=== PATIENT | female | born 1995 | race Caucasian/White ===

== ENCOUNTER → 2022-11-28 | Outpatient (CLI) | payer OTHER, SELFPAY ==
[2022-11-28 15:45] LABS: Absolute Lymphocyte Count 2.59 X10^3/uL (0.83-4.51); Absolute Neutrophil Count 4.3 X10^3/uL (2.0-7.7); Basophil# 0.05 X10^3/uL; Basophil% 0.6 % (0-1); Eosinophil# 0.19 X10^3/uL; Eosinophils% 2.4 % (0-5); Hematocrit 39.1 % (37-47); Lymphocyte # 2.59 X10^3/ul (0.83-4.51); Lymphocyte % 33.2 % (19-41); Mean Corp Hgb Conc 33.2 g/dL (32-36); Mean Corpuscular Hgb 29.1 pg (27.0-32.0); Mean Corpuscular Volume 87.5 fL (81-99); Mean Platelet Vol. 10.1 fl (6.2-12.0); Monocyte% 7.7 % (0-10); NRBC Flagged by Analyzer 0 % (0-5); Neutrophil # 4.34 X10^3/uL (2.7-7.7); Neutrophil % 55.8 % (47-70); Platelet Count 350 K/mm3 (150-450); RBC Distribution Width CV 13.1 % (11.6-14.6); RBC Distribution Width SD 41.8 fl (35.1-43.9); Red Blood Count 4.47 M/mm3 (4.2-5.4); White Blood Count 7.8 K/mm3 (4.4-11.0)
[2022-11-28 16:05] LABS: Ferritin 19 ng/mL (8-252); Free T3 2.6 pg/mL (2.18-3.98); T4 Free Direct 0.85 ng/dL (0.76-1.46); Thyroid Stim Hormone (TSH) 1.97 uIU/mL (0.358-3.74)
[2022-12-03 09:08] LABS: Anti-Thyroglobulin AB < 1.0 IU/mL (0.0-0.9); Thyroglobulin, Serum Qt. 11.2 ng/mL (1.5-38.5); Thyroid Peroxidase AB < 9 IU/mL (0-34); Thyroid Stim Immunoglob <0.10 IU/L (0.00-0.55)
== END | disposition home or self-care (01) ==
LOC: MFPLAB 14:03
PROVIDERS: PCP Family Medicine; Visit Provider Family Medicine
DX: L65.9 Nonscarring hair loss, unspecified (principal)
CPT/HCPCS: 82728; 84432; 84439; 84443; 84445; 84481; 85025; 86376; 86800

== ENCOUNTER → 2023-05-21 | Outpatient (CLI) | payer OTHER, SELFPAY ==
[2023-05-21 18:30] LABS: HIV - WCH Non-Reactive (Nonreactive); Hepatitis C Antibody Non-Reactive (Nonreactive); Syphilis Antibodies Non-reactive
[2023-05-23 06:10] LABS: HSV 2 IgG < 0.91 index (0.00-0.90)
[2023-05-23 22:06] LABS: Chlamydia By Nucleic Acid AMP Negative (Negative); Gonococcus By Nucleic Acid AMP Negative (Negative)
[2023-05-27 11:56] LABS: HPV Reflexed? NOT INDICATED
== END | disposition home or self-care (01) ==
PROVIDERS: PCP Family Medicine; Referring Provider Registered Nurse; Visit Provider Registered Nurse
DX: Z11.3 Encounter for screening for infections with a predominantly sexual mode of transmission (principal); Z12.4 Encounter for screening for malignant neoplasm of cervix; Z20.2 Contact with and (suspected) exposure to infections with a predominantly sexual mode of transmission
CPT/HCPCS: 36415; 86695; 86696; 86703; 86780; 86803; 87491; 87591; 88175; G0145

== ENCOUNTER → 2024-12-02 | Outpatient (CLI) | payer OTHER, SELFPAY ==
[2024-12-03 23:07] LABS: Chlamydia By Nucleic Acid AMP Negative (Negative); Gonococcus By Nucleic Acid AMP Negative (Negative)
== END | disposition home or self-care (01) ==
LOC: LABSPEC 11:31
PROVIDERS: Referring Provider Advanced Practice Midwife; Visit Provider Advanced Practice Midwife
DX: Z11.3 Encounter for screening for infections with a predominantly sexual mode of transmission (principal); Z20.2 Contact with and (suspected) exposure to infections with a predominantly sexual mode of transmission
CPT/HCPCS: 87070; 87205; 87491; 87591

== ENCOUNTER 2025-01-13 05:55 | Emergency (ER) | payer OTHER, SELFPAY ==
[2025-01-13 05:56] VITALS: BP 140/84; PULSE 79; RESP 18; TEMP 37.2; O2SAT 100; BMI 39.4
--- NOTE | 2025-01-13 06:11 | RAD_ITS ---
PROCEDURE: ANKLE MIN 3 VIEWS; FOOT MIN 3 VIEWS 01/13/2025 REASON FOR EXAM: PAIN TECHNIQUE: Three-view left ankle and three-view left foot series (combined dictation). COMPARISON: None. RAD/Foot min 3 Views IMPRESSION: A transverse FRACTURE at the proximal left 5th metatarsal bone is seen, minimal ly displaced. Probable comminuted portion extending to the 5th tarsal-metatarsal articulation, as well. On lateral imaging, normal contour of the Achilles tendon is seen mild inferior and posterior calcaneal spurring is noted. No ankle joint effusion is seen. The ankle mortise appears intact. No significant arthritic process is seen. No fracture or dislocation is evident. If clinical concern persists, short-term follow-up imaging may be obtained to r ule out a currently occult fracture. Reading Location: [id number]
--- NOTE | 2025-01-13 06:11 | RAD_ITS ---
PROCEDURE: ANKLE MIN 3 VIEWS; FOOT MIN 3 VIEWS 01/13/2025 REASON FOR EXAM: PAIN TECHNIQUE: Three-view left ankle and three-view left foot series (combined dictation). COMPARISON: None. RAD/Ankle min 3 Views IMPRESSION: A transverse FRACTURE at the proximal left 5th metatarsal bone is seen, minimal ly displaced. Probable comminuted portion extending to the 5th tarsal-metatarsal articulation, as well. On lateral imaging, normal contour of the Achilles tendon is seen mild inferior and posterior calcaneal spurring is noted. No ankle joint effusion is seen. The ankle mortise appears intact. No significant arthritic process is seen. No fracture or dislocation is evident. If clinical concern persists, short-term follow-up imaging may be obtained to r ule out a currently occult fracture. Reading Location: [id number]
--- OUTSIDE RECORDS SUMMARY | 2025-01-13 06:34 | XMS RPT_ITS | CCD ---
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 tenderness. Negative right straight leg raise test and negative left straight leg raise test. Right upper leg: Tenderness (Mild diffuse, no pain with activation of hamstrings) present. No swelling, edema or bony tenderness. Left upper leg: Tenderness (Mild diffuse, no pain with activation hamstrings) present. No swelling, edema or bony tenderness. Legs: Comments: Strength Testing Hip Flexors (T12-L3) normal strength bilateral, no weakness Quad (L2-L4) normal strength bilateral, no weakness Tibialis Anterior (L4) normal strength bilateral, no weakness Extensor Hallusis Longus (L5) normal strength bilateral, no weakness Peroneus Longus (S1) normal strength bilateral, no weakness Gastroc (S1) normal strength bilateral, no weakness Sensation Testing Lateral Thigh (L1-L2) intact to light touch bilateral, no paresthesia Medial Knee (L3) intact to light touch bilateral, no paresthesia Medial Calf, Medial Foot (L4) intact to light touch bilateral, no paresthesia Lateral Calf, 1st web space (L5) intact to light touch bilateral, no paresthesia Lateral Foot (S1) intact to light touch bilateral, no paresthesia Reflexes Patella (L4) 2+ equal bilaterally Achilles (S1) 2+ equal bilaterally External Notes No pertinent interval updates Labs No results found for: HGBA1C Lab Results Component Value Date CREATININE 0.82 11/08/2021 Imaging No imaging available for review EMG/NCT N/A Procedure No procedures completed today Assessment Diagnosis Plan 1. Hamstring strain, left, initial encounter 2. Hamstring strain, right, initial encounter Plan Continue normal workouts as tolerated. Add [place] curls to her hamstring workout program. Continue flexibility. Recheck if symptoms are not substantially relieved with this program. We can consider adding formal physical therapy. No follow-ups on file. Elio Castillo MD 07/10/2023 9:13 AM Please note that portions of this note may have been completed with voice recognition software. Efforts were made to edit the dictation but minor errors in announcer may have occurred. Normal [facility] Chlamydia trachomatis rRNA d etection by probe and target amplification methodOrdered By: Vicki Rebolledo on 05-21-2023 C. trachomatis rRNA ANNELIESE+probe Ql (Unsp spec) Negative Negative [facility] HIV 1 and HIV-2 antibody ass ay with HIV-1 p24 antigen detectionOrdered By: Vicki Rebolledo on 05-21-2023 HIV 1+2 Ab+HIV1 p24 Ag IA Ql Non-Reactive Nonreactive [facility] Laboratory - Microbiology an d Antimicrobial susceptibilityOrdered By: Vicki Rebolledo on 05-21-2023 N. gonorrhoeae DNA ANNELIESE+probe Ql (Unsp spec) Negative Negative [facility] Comment on above: Performed at: =[address] [id number] Director: Zhanna Gee MD, Phone: [phone] No Panel InformationOrdered By: Vicki Rebolledo on 05-21-2023 Hepatitis C Antibody Non-Reactive Nonreactive [facility] Comment on above: Non Reactive: < 0.8 Equivocal: >/= 0.8 to < 1.0 Reactive: >/= 1.0The CDC recommends that a reactive/equivocal HCV antibody result be followed up by the HCV Nucleic Acid Amplificationtest ([id number]) Herpes Simplex Virus I IgG Antibody 55.70 index 0.00-0.90 [facility] Comment on above: Negative <0.91 Equiv ocal 0.91 - 1.09 Positive >1.09 Note: Negative indicates no antibodies detected to HSV-1. Equivocal may suggest early infection. If clinically appropriate, retest at later date. Positive indicates antibodies detected to HSV-1. Serum Treponema species anti body detectionOrdered By: Vicki Rebolledo on 05-21-2023 Treponema sp Ab Ql (S) Non-Reactive [facility] Serum herpes simplex virus 2 antibody assay by immunoassay (units/volume)Ordered By: Vicki Rebolledo on 05-21-2023 HSV 2 Ab IA Qn (S) < 0.91 index 0.00-0.90 [facility] Comment on above: Negative <0.91 Equiv ocal 0.91 - 1.09 Positive >1.09 HSV-2 Antibody Interpretation: Negative indicates no detectable antibodies to HSV-2 were found. If recent exposure is suspected, retest in 4-6 weeks. Equivocal samples should be retested in 4-6 weeks. Positive indicates the presence of detectable IgG antibody to HSV-2. False positive results may occur. Repeat testing, or testing by a different method, may be indicated in some settings (e.g. patients with low likelihood of HSV infection). If clinically appropriate, retest 4-6 weeks later.Performed at: [facility] Lab[address] [id number] Director: Sammy Yarbrough PhD, Phone: [phone] Absolute lymphocyte countOrd ered By: Clau Briones on 11-28-2022 Lymphocytes Auto (Unsp spec) [#/Vol] 2.59 10*3/uL 0.83-4.51 [facility] Basophil percentageOrdered B y: Clau Briones on 11-28-2022 Basophils/100 WBC (Bld) 0.6 % 0-1 [facility] Eosinophils/100 WBC (Bld) 2.4 % 0-5 [facility] Neutrophils (Bld) [#/Vol] 4.3 10*3/uL 2.0-7.7 [facility] Neutrophils/100 WBC (Bld) 55.8 % 47-70 [facility] WBC (Bld) [#/Vol] 7.8 10*3/uL 4.4-11.0 [facility] Blood erythrocytes count (nu mber/volume)Ordered By: Clau Briones on 11-28-2022 RBC (Bld) [#/Vol] 4.47 10*6/uL 4.2-5.4 [facility] Blood hemoglobin measurement (mass/volume)Ordered By: Clau Briones on 11-28-2022 Hemoglobin (Bld) [Mass/Vol] 13.0 g/dL 12.0-15.0 [facility] Blood lymphocytes/100 leukoc ytesOrdered By: Clau Briones on 11-28-2022 Lymphocytes/100 WBC (Bld) 33.2 % 19-41 [facility] Blood monocytes/100 leukocyt esOrdered By: Clau Briones on 11-28-2022 Monocytes/100 WBC (Bld) 7.7 % 0-10 [facility] Blood platelet mean volumeOr dered By: Clau Briones on 11-28-2022 Platelet mean volume (Bld) [Entitic vol] 10.1 fL 6.2-12.0 [facility] Determination of erythrocyte mean corpuscular volume (MCV)Ordered By: Clau Briones on 11-28-2022 MCV (RBC) [Entitic vol] 87.5 fL 81-99 [facility] Hematocrit Auto (Bld) [Volum e fraction]Ordered By: Clau Briones on 11-28-2022 Hematocrit (Bld) [Volume fraction] 39.1 % 37-47 [facility] Laboratory - Chemistry and C hemistry - challengeOrdered By: Clau Briones on 11-28-2022 Free T4 [Mass/Vol] 0.85 ng/dL 0.76-1.46 [facility] - Hematology and Cell countsOrdered By: Clau Briones on 11-28-2022 Erythrocyte distribution width (RBC) [Entitic vol] 41.8 fL 35.1-43.9 [facility] Erythrocyte distribution width (RBC) [Ratio] 13.1 % 11.6-14.6 [facility] Immature granulocytes/100 WBC (Bld) 0.300 % 0.0-0.9 [facility] Comment on above: IG% - Immature Granu locytes (promyelocytes, myelocytes and metamyelocytes) > 1% indicates that a LEFT SHIFT is Present. MCH (RBC) [Entitic mass] 29.1 pg 27.0-32.0 [facility] Nucleated RBC/100 WBC (Bld) [Ratio] 0 % 0-5 [facility] MCHC Auto (RBC) [Mass/Vol]Or dered By: Clau Briones on 11-28-2022 MCHC (RBC) [Mass/Vol] 33.2 g/dL 32-36 [facility] No Panel InformationOrdered By: Clau Briones on 11-28-2022 Free Triiodothyronine (T3) pg/dL 2.6 pg/mL 2.18-3.98 [facility] Thyroglobulin Antibody < 1.0 IU/mL 0.0-0.9 [facility] Comment on above: Thyroglobulin Antibo dy measured by Bette CoulterMethodology Thyroglobulin Level 11.2 ng/mL 1.5-38.5 [facility] Comment on above: According to the [facility] Academy of Clinical Biochemistry,the reference interval for Thyroglobulin (TG) should berelated to euthyroid patients and not for patients whounderwent thyroidectomy. TG reference intervals for thesepatients depend on the residual mass of the thyroid tissueleft after surgery. Establishing a post-operative baselineis recommended. The assay limit of quantitation is 0.1ng/mLThyroglobulin measured by Bette Verna ImmunometricAssay Thyroid Stimulating Hormone (TSH) 1.97 uIU/mL 0.358-3.74 [facility] Platelets bldOrdered By: Marsha Briones on 11-28-2022 Platelets (Bld) [#/Vol] 350 10*3/uL 150-450 [facility] Serum or plasma ferritin alex surement (mass/volume)Ordered By: Clau Briones on 11-28-2022 Ferritin [Mass/Vol] 19 ng/mL 8-252 [facility] Serum or plasma thyroperoxid ase antibody assay (units/volume)Ordered By: Clau Briones on 11-28-2022 TPO Ab Qn [IU]/mL 0-34 [facility] Comment on above: Performed at: - [address] [id number] Director: Salina Campo MD, Phone: [phone] at: - [facility] [id number] Director: Sammy Yarbrough PhD, Phone: [phone] Thyroid stimulating immunogl obulins detectionOrdered By: Clau Briones on 11-28-2022 Thyroid stimulating immunoglobulins Ql (S) <0.10 IU/L 0.00-0.55 [facility] CBC with Auto Differentialon 11-08-2021 Absolute Baso # 0.0 10*3/uL 0.0 - 0.2 10*3/uL [facility] Absolute Neut # 4.2 10*3/uL 1.8 - 7.0 10*3/uL [facility] Basophils/100 WBC (Bld) 0.6 % 0.0 - 2.0 % [facility] Eosinophils (Bld) [#/Vol] 0.1 10*3/uL 0.0 - 0.5 10*3/uL [facility] Eosinophils/100 WBC (Bld) 1.3 % 1.0 - 6.0 % [facility] Granulocytes/100 WBC (Bld) 62.9 % 40.0 - 80.0 % [facility] Hematocrit (Bld) [Volume fraction] 41.8 % 35.0 - 47.0 % [facility] Hemoglobin.gastrointesti nal spec 1 Ql (Stl) 13.9 g/dL 11.7 - 16.0 g/dL [facility] Lymphocytes (Bld) [#/Vol] 1.9 10*3/uL 1.0 - 4.3 10*3/uL [facility] Lymphocytes/100 WBC (Bld) 28.6 % 20.0 - 40.0 % [facility] MCH (RBC) [Entitic mass] 28.2 pg 26.0 - 34.0 pg [facility] MCHC (RBC) [Mass/Vol] 33.1 % 32.0 - 36.0 % [facility] MCV (RBC) [Entitic vol] 85.0 fL 79.0 - 98.0 fL [facility] Monocytes (Bld) [#/Vol] 0.4 10*3/uL 0.0 - 0.8 10*3/uL [facility] Monocytes/100 WBC (Bld) 6.6 % 2.0 - 10.0 % [facility] Platelet distribution width (Bld) [Ratio] 14.3 % 11.5 - 14.5 % [facility] Platelet mean volume (Bld) [Entitic vol] 7.9 fL 7.4 - 10.4 fL [facility] Platelets (Bld) [#/Vol] 364 10*3/uL 140 - 440 10*3/uL [facility] RBC (Bld) [#/Vol] 4.92 10*6/uL 3.80 - 5.2 0 10*6/uL [facility] WBC (Bld) [#/Vol] 6.7 10*3/uL 3.6 - 10.7 10*3/uL [facility] Test Performed by [facility], [address] , [place], [place] [id number] [place] [address] LAB [facility] Comp Metabolic Panelon 11-08 ALT [Catalytic activity/Vol] 16 U/L Normal 0-34 [facility] Comment on above: Result Comment: The ALT test is performed by an updated assay method. Please note that the reference intervals have been changed and are now sex specific. Performed By: #### Q WNT5, LIPD2, CMP3, HEMDF #### [facility] [address] [place] [address] Calcium [Mass/Vol] 9.1 mg/dL Normal 8.4-10.4 [facility] Comment on above: Performed By: #### Q WNT5, LIPD2, CMP3, HEMDF #### [facility] [address] [place] [address] ALP [Catalytic activity/Vol] 82 U/L Normal 38-126 [facility] Comment on above: Performed By: #### Q WNT5, LIPD2, CMP3, HEMDF #### [facility] [address] [place] [address] Anion gap [Moles/Vol] 8 mmol/L Normal 3-13 [facility] Comment on above: Performed By: #### Q WNT5, LIPD2, CMP3, HEMDF #### [facility] [address] [place] [address] AST [Catalytic activity/Vol] 31 U/L Normal 15-46 [facility] Comment on above: Performed By: #### Q WNT5, LIPD2, CMP3, HEMDF #### [facility] [address] [place] [address] Bilirubin [Mass/Vol] 0.6 mg/dL Normal 0.2-1.3 [facility] Comment on above: Performed By: #### Q WNT5, LIPD2, CMP3, HEMDF #### [facility] [address] [place] [address] CO2 [Moles/Vol] 25 mmol/L Normal 22-30 [facility] Comment on above: Performed By: #### Q WNT5, LIPD2, CMP3, HEMDF #### [facility] [address] [place] [address] Creatinine [Mass/Vol] 0.82 mg/dL Normal 0.52-1.25 [facility] Comment on above: Performed By: #### Q WNT5, LIPD2, CMP3, HEMDF #### [facility] [address] [place] [address] eGFR OTHER > 90.0 Normal >60 [facility] Comment on above: Result Comment: KDIG O guidelines provide the following GFR categories: Stage GFR(ml/min/1.73 m2) Terms G1 >=90 Normal or high G2 60-89 Mildly decreased* G3a 45-59 Mildly to moderately decreased G3b 30-44 Moderately to severely decreased G4 15-29 Severely decreased G5 <15 Kidney failure *Relative to young adult level. In the absence of evidence of kidney damage, neither GFR category G1 nor G2 fulfill the criteria for CKD. The CKD-EPI equation is validated in individuals 18 years of age and older. Currently the best equation for estimating glomerular filtration rate (GFR) from serum creatinine in children is the Bedside Rhodes equation. It is less accurate in patients with extremes of muscle mass, restriction of dietary protein, ingestion of creatine, extra-renal metabolism of creatinine, or treatment with medications that affect renal tubular creatinine secretion. Performed By: #### Q WNT5, LIPD2, CMP3, HEMDF #### [facility] [address] [place] [address] GFR/1.73 sq M.predicted among blacks MDRD (S/P/Bld) [Vol rate/Area] mL/min/{1.73_m2} Normal >60 [facility] Comment on above: Performed By: #### Q WNT5, LIPD2, CMP3, HEMDF #### [facility] [address] [place] [address] Glucose [Mass/Vol] 107 mg/dL High 70-100 [facility] Comment on above: Performed By: #### Q WNT5, LIPD2, CMP3, HEMDF #### [facility] [address] [place] [address] Protein [Mass/Vol] 7.7 g/dL Normal 6.3-8.2 [facility] Comment on above: Performed By: #### Q WNT5, LIPD2, CMP3, HEMDF #### [facility] [address] [place] [address] Urea nitrogen [Mass/Vol] 14 mg/dL Normal 9-20 [facility] Comment on above: Performed By: #### Q WNT5, LIPD2, CMP3, HEMDF #### [facility] [address] [place] [address] Potassium [Moles/Vol] 4.2 mmol/L Normal 3.5-5.1 [facility] Comment on above: Performed By: #### Q WNT5, LIPD2, CMP3, HEMDF #### [facility] [address] [place] [address] Sodium [Moles/Vol] 140 mmol/L Normal 135-145 [facility] Comment on above: Performed By: #### Q WNT5, LIPD2, CMP3, HEMDF #### [facility] [address] [place] [address] Albumin [Mass/Vol] 4.5 g/dL Normal 3.5-5.0 [facility] Comment on above: Performed By: #### Q WNT5, LIPD2, CMP3, HEMDF #### [facility] [address] [place] [address] Chloride [Moles/Vol] 107 mmol/L Normal 98-107 [facility] Comment on above: Performed By: #### Q WNT5, LIPD2, CMP3, HEMDF #### [facility] [address] [place] [address] Comprehensive Metabolic Pane glenna 11-08-2021 Albumin [Mass/Vol] 4.5 g/dL 3.5 - 5.0 g/dL [facility] ALP (Bld) [Catalytic activity/Vol] 82 U/L 38 - 126 [facility] ALT [Catalytic activity/Vol] 16 U/L 0 - 34 U/L [facility] Comment on above: The ALT test is perf ormed by an updated assay method. Please note that the reference intervals have been changed and are now sex specific. Anion gap [Moles/Vol] 8 mmol/L 3 - 13 mmol/L [facility] AST [Catalytic activity/Vol] 31 U/L 15 - 46 U/L [facility] Bilirubin [Mass/Vol] 0.6 mg/dL 0.2 - 1 .3 mg/dL [facility] Calcium [Mass/Vol] 9.1 mg/dL 8.4 - 10. 4 mg/dL [facility] Chloride [Moles/Vol] 107 mmol/L 98 - 10 7 mmol/L [facility] CO2 [Moles/Vol] 25 mmol/L 22 - 30 mmol/L [facility] Creatinine [Mass/Vol] 0.82 mg/dL 0.52 - 1.25 mg/dL [facility] EGFR IF NonAfrican Liberian >90.0 >60 mL/min [facility] Comment on above: KDIGO guidelines pro vide the following GFR categories: Stage GFR(ml/min/1.73 m2) Terms G1 >=90 Normal or high G2 60-89 Mildly decreased* G3a 45-59 Mildly to moderately decreased G3b 30-44 Moderately to severely decreased G4 15-29 Severely decreased G5 <15 Kidney failure *Relative to young adult level. In the absence of evidence of kidney damage, neither GFR category G1 nor G2 fulfill the criteria for CKD. The CKD-EPI equation is validated in individuals 18 years of age and older. Currently the best equation for estimating glomerular filtration rate (GFR) from serum creatinine in children is the Bedside Rhodes equation. It is less accurate in patients with extremes of muscle mass, restriction of dietary protein, ingestion of creatine, extra-renal metabolism of creatinine, or treatment with medications that affect renal tubular creatinine secretion. Free PSA/Total PSA [Mass fraction] 7.7 g/dL 6.3 - 8.2 g/dL [facility] GFR/1.73 sq M.predicted among blacks MDRD (S/P/Bld) [Vol rate/Area] mL/min/{1.73_m2} >60 mL/min [facility] Glucose [Mass/Vol] 107 mg/dL High 70 - 100 mg/dL [facility] Potassium [Moles/Vol] 4.2 mmol/L 3.5 - 5.1 mmol/L [facility] Sodium [Moles/Vol] 140 mmol/L 135 - 145 mmol/L [facility] Urea nitrogen (BldV) [Mass/Vol] 14 mg/dL 9 - 20 mg/dL [facility] HCG, Quantitative, on 11-08-2021 hCG Quant <2 m[IU]/mL [facility] Comment on above: Females < 5 Values in should double every 2 to 3 days for the first 6 weeks.Elevated concentrations of human chorionic gonadotropin (hCG) measured in the first trimester of are observed in normal , but may serve as an indication of chorionic carcinoma, hydatiform mole, or multiple .Decreasing hCG concentrations indicate threatened or missed , recent termination of , ectopic , gestosis or intrauterine . Carmencita- and postmenopausal females may have detectable hCG concentrations (< or = to 14 mIU/mL) due to pituitary production of hCG. Serum follicle-stimulating hormone measurement may aid in ruling-out in this population. Cutoffs of greater than 20 to 45 mIU/mL have been suggested and are method dependent. False-elevations (called phantom human chorionic gonadotropin: hCG) may occur with patients who have human antianimal or heterophilic antibodies. Some specimens may not dilute linearly due to abnormal forms of hCG. Elevated hCG concentrations not associated with are found in patients with other diseases such as tumors of the germ cells, ovaries, bladder, pancreas, stomach, lungs, and liver. This test is not intended to detect or monitor tumors or gestational trophoblastic disease. Test Performed by [facility], [facility] [address] LAB [facility] Hemogram w/ Autodiffon 11-08 Abs Baso Cnt 0.0 10*3/uL Normal 0.0-0.2 [facility] Comment on above: Performed By: #### Q WNT5, LIPD2, CMP3, HEMDF #### [facility] [address] [place] [address] Abs Neutrophile Cnt 4.2 10*3/uL Normal 1.8-7.0 [facility] Comment on above: Performed By: #### Q WNT5, LIPD2, CMP3, HEMDF #### [facility] [address] [place] [address] Basophils/100 WBC (Bld) 0.6 % Normal 0.0-2.0 [facility] Comment on above: Performed By: #### Q WNT5, LIPD2, CMP3, HEMDF #### [facility] [address] [place] [address] Eosinophils (Bld) [#/Vol] 0.1 10*3/uL Normal 0.0-0.5 [facility] Comment on above: Performed By: #### Q WNT5, LIPD2, CMP3, HEMDF #### [facility] [address] [place] [address] Eosinophils/100 WBC (Bld) 1.3 % Normal 1.0-6.0 [facility] Comment on above: Performed By: #### Q WNT5, LIPD2, CMP3, HEMDF #### [facility] [address] [place] [address] Erythrocyte distribution width (RBC) [Ratio] 14.3 % Normal 11.5-14.5 [facility] Comment on above: Performed By: #### Q WNT5, LIPD2, CMP3, HEMDF #### [address] [place] [address] Granulocytes/100 WBC (Bld) 62.9 % Normal 40.0-80.0 [facility] Comment on above: Performed By: #### Q WNT5, LIPD2, CMP3, HEMDF #### [address] [place] [address] Hematocrit (Bld) [Volume fraction] 41.8 % Normal 35.0-47.0 [facility] Comment on above: Performed By: #### Q WNT5, LIPD2, CMP3, HEMDF #### [address] [place] [address] Hemoglobin (Bld) [Mass/Vol] 13.9 g/dL Normal 11.7-16.0 [facility] Comment on above: Performed By: #### Q WNT5, LIPD2, CMP3, HEMDF #### [address] [place] [address] Lymphocytes (Bld) [#/Vol] 1.9 10*3/uL Normal 1.0-4.3 [facility] Comment on above: Performed By: #### Q WNT5, LIPD2, CMP3, HEMDF #### [address] [place] [address] Lymphocytes/100 WBC (Bld) 28.6 % Normal 20.0-40.0 [facility] Comment on above: Performed By: #### Q WNT5, LIPD2, CMP3, HEMDF #### [facility] [address] [place] [address] MCH (RBC) [Entitic mass] 28.2 pg Normal 26.0-34.0 [facility] Comment on above: Performed By: #### Q WNT5, LIPD2, CMP3, HEMDF #### [facility] [address] [place] [address] MCHC 33.1 % Normal 32.0-36.0 [facility] Comment on above: Performed By: #### Q WNT5, LIPD2, CMP3, HEMDF #### [facility] [address] [place] [address] MCV (RBC) [Entitic vol] 85.0 fL Normal 79.0-98.0 [facility] Comment on above: Performed By: #### Q WNT5, LIPD2, CMP3, HEMDF #### [facility] [address] [place] [address] Monocytes (Bld) [#/Vol] 0.4 10*3/uL Normal 0.0-0.8 [facility] Comment on above: Performed By: #### Q WNT5, LIPD2, CMP3, HEMDF #### [address] [address] Monocytes/100 WBC (Bld) 6.6 % Normal 2.0-10.0 [facility] Comment on above: Performed By: #### Q WNT5, LIPD2, CMP3, HEMDF #### [facility] [address] [place] [address] Platelet mean volume (Bld) [Entitic vol] 7.9 fL Normal 7.4-10.4 [facility] Comment on above: Performed By: #### Q WNT5, LIPD2, CMP3, HEMDF #### [facility] [address] [place] [address] Platelets (Bld) [#/Vol] 364 10*3/uL Normal 140-440 [facility] Comment on above: Performed By: #### Q WNT5, LIPD2, CMP3, HEMDF #### [facility] [address] [place] [address] RBC (Bld) [#/Vol] 4.92 10*6/uL Normal 3.80-5.20 [facility] Comment on above: Performed By: #### Q WNT5, LIPD2, CMP3, HEMDF #### [facility] [address] [place] [address] WBC (Bld) [#/Vol] 6.7 10*3/uL Normal 3.6-10.7 [facility] Comment on above: Performed By: #### Q WNT5, LIPD2, CMP3, HEMDF #### [facility] [address] [place] [address] Lipid Panelon 11-08-2021 Chol/HDL 4 Normal [facility] Comment on above: Result Comment: Ref Range: < 3 Low Risk for CHD 3-6 Mod Risk for CHD > 6 High Risk for CHD Performed By: #### Q WNT5, LIPD2, CMP3, HEMDF #### [facility] [address] [place] [address] Cholesterol in HDL [Mass/Vol] 46 mg/dL Normal 40-60 [facility] Comment on above: Performed By: #### Q WNT5, LIPD2, CMP3, HEMDF #### [facility] [address] [place] [address] Low Density Lipoprotein 120 mg/dL Abnormal <100 [facility] Comment on above: Performed By: #### Q WNT5, LIPD2, CMP3, HEMDF #### [facility] [address] [place] [address] Cholesterol [Mass/Vol] 182 mg/dL Normal < 200 [facility] [facility] Comment on above: Performed By: #### Q WNT5, LIPD2, CMP3, HEMDF #### [facility] [address] [place] [address] Triglyceride [Mass/Vol] 80 mg/dL Normal <150 [facility] Comment on above: Performed By: #### Q WNT5, LIPD2, CMP3, HEMDF #### [facility] [address] [place] [address] Cholesterol [Mass/Vol] 182 mg/dL <200 [facility] Cholesterol in HDL [Mass/Vol] 46 mg/dL 40 - 60 mg/dL [facility] Cholesterol in LDL [Mass/Vol] 120 mg/dL Abnormal <100 [facility] Cholesterol.total/Choles terol in HDL [Mass ratio] 4 {ratio} [facility] Comment on above: Ref Range: < 3 Low Risk for CHD 3-6 Mod Risk for CHD > 6 High Risk for CHD Triglyceride [Mass/Vol] 80 mg/dL <150 [facility] No Panel Informationon 11-08 Interpretation and review of laboratory results Abnormal [facility] Test Performed by [facility], [address] , [address] LAB [facility] hCG Quantitativeon 2 hCG Quantitative < 2 Normal [facility] Comment on above: Result Comment: Fema les < 5 Values in should double every 2 to 3 days for the first 6 weeks.Elevated concentrations of human chorionic gonadotropin (hCG) measured in the first trimester of are observed in normal , but may serve as an indication of chorionic carcinoma, hydatiform mole, or multiple .Decreasing hCG concentrations indicate threatened or missed , recent termination of , ectopic , gestosis or intrauterine . Carmencita- and postmenopausal females may have detectable hCG concentrations (< or = to 14 mIU/mL) due to pituitary production of hCG. Serum follicle-stimulating hormone measurement may aid in ruling-out in this population. Cutoffs of greater than 20 to 45 mIU/mL have been suggested and are method dependent. False-elevations (called phantom human chorionic gonadotropin: hCG) may occur with patients who have human antianimal or heterophilic antibodies. Some specimens may not dilute linearly due to abnormal forms of hCG. Elevated hCG concentrations not associated with are found in patients with other diseases such as tumors of the germ cells, ovaries, bladder, pancreas, stomach, lungs, and liver. This test is not intended to detect or monitor tumors or gestational trophoblastic disease. Performed By: #### Q WNT5, LIPD2, CMP3, HEMDF #### [facility] [address] [place] [address] CBC auto differentialon 03-0 Absolute Baso # 0.0 10*3/uL 0 - 0.2 10*3/uL [place], [place] Absolute Neut # 5.3 10*3/uL 1.8 - 7 10*3/uL [place] Basophils/100 WBC (Bld) 0.5 % 0 - 2 % [place], [place] Eosinophils (Bld) [#/Vol] 0.2 10*3/uL 0 - 0.5 10*3/uL [place] Eosinophils/100 WBC (Bld) 2.1 % 1 - 6 % [place] Erythrocyte distribution width (RBC) [Ratio] 13.5 % 11.5 - 14.5 % [place] Granulocytes/100 WBC (Bld) 59.1 % 40 - 80 % [place] Hematocrit (Bld) [Volume fraction] 39.1 % 35 - 47 % [place] Hemoglobin (Bld) [Mass/Vol] 13.1 g/dL 11.7 - 16 g/dL [place] Lymphocytes (Bld) [#/Vol] 2.9 10*3/uL 1 - 4.3 10*3/uL [place] Lymphocytes/100 WBC (Bld) 31.6 % 20 - 40 % [place] MCH (RBC) [Entitic mass] 28.6 pg 26 - 34 pg [place] MCHC (RBC) [Mass/Vol] 33.4 % 32 - 36 % [place], [place] MCV (RBC) [Entitic vol] 85.6 fL 79 - 98 fL [place], [place] Monocytes (Bld) [#/Vol] 0.6 10*3/uL 0 - 0.8 10*3/uL [place] Monocytes/100 WBC (Bld) 6.7 % 2 - 10 % [place] Platelet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
--- NOTE | 2025-01-13 07:07 | EX.ED.DYSGE1 ---
HPI <Dr. Brian Helms, DO - Last Filed: 01/14/25 03:42> History of Present Illness Chief Complaint: Lower Extremity Injury Informant: patient and spouse/S.O. Narrative Narrative: Patient is a 29-year-old female with past medical history of of ADHD. She states that she was up this morning roughly 30 minutes prior to arrival taking her dog out. She states she tripped over a cement divider between the yard and her walkway and rolled her left ankle inward. She denies striking her head or any loss of consciousness. She states she was able to get up following the injury. She reports however she noticed swelling in the ankle and foot and was having difficulty ambulating. With concern for fracture she presents for evaluation. [facility] <Dr. Brian Helms, - Last Filed: 01/14/25 03:42> [facility] Medical History Hypertension Depression ADHD Hx of abnormal cervical Pap smear Home Medications ?Medication ?Instructions ?Recorded ?Last Taken ?Type levonorgestrel 17.5 mcg/24 hr (up 1 device intrauterine ONCE 05/21/24 03/01/21 09:30 History to 5 yrs) 19.5mg intrauterine device (Kyleena) oxycodone-acetaminophen 5 mg-325 1 tab PO Q6H PRN pain 3 days #12 01/13/25 Unknown Rx mg tablet (Percocet) tabs Allergy/AdvReac Type Severity Reaction Status Date / Time bupropion (From Wellbutrin) Allergy Rash Verified 01/13/25 05:59 doxycycline Allergy Nausea/Vom/ Verified 01/13/25 05:59 Diarrhea Family History Mother Hypertension Father Hypertension Cancer NMSC Grandmother Dementia CVA (cerebral vascular accident) Grandfather Lung cancer Surgical History H/O wisdom tooth extraction Social History adopted: No household members: significant other number of children: 0 current occupational status: employed current occupation: [employer] current occupational exposures/hazards: No pets and animals: Yes pets and animals: cat(s) and dog(s) history of recent travel: Yes out of state: Yes sexually active: Yes Smoking Status: Never smoker second hand exposure: No alcohol intake: current alcohol intake frequency: holidays/special occasions only substance use type: does not use what type of physical activity do you participate in: weight training frequency: 5-6 times per week seatbelt use: always do you feel safe at home: Yes 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 Brian Helms, DO - Last Filed: 01/14/25 03:42> ROS ED Constitutional Constitutional ED: Denies chills or fever(s) Eyes Eyes: Denies change in vision ENT ENT ED: Denies sore throat Cardiovascular Cardiovascular: Reports other Details: Negative syncope ; Denies chest pain, palpitations or racing heartbeat Respiratory/Chest Respiratory/Chest: Denies cough or dyspnea Gastrointestinal Gastrointestinal: Denies abdominal pain, diarrhea, nausea or vomiting Musculoskeletal Musculoskeletal: Reports other Details: Positive left foot/ankle pain ; Denies back pain or neck pain Integumentary Reports other Details: Positive swelling and bruising left foot/ankle ; Denies Abrasions Neurologic Neurologic: Denies headache(s) or paresthesias Hematologic/Lymphatic Hematologic/Lymphatic: Denies easy bleeding or easy bruising EXAM <Dr. Brian Helms, - Last Filed: 01/14/25 03:42> Physical Exam Const Vital Signs: 01/13/25 05:56 01/13/25 07:24 Temperature 98.9 F 98.7 F Temperature Source Oral Pulse Rate 79 68 Respiratory Rate 18 16 Blood Pressure 140/84 H 126/74 H Blood Pressure Mean 102 91 Pulse Ox 100 98 Oxygen Delivery Method Room Air Positive well nourished and well developed General Appearance ED: well developed HEENT HEENT Narrative: Normocephalic atraumatic Eyes PERRL and EOMs intact bilaterally Neck supple Neck Narrative: Patient is able to move her neck in all directions without pain Resp normal respiratory effort and clear to auscultation bilaterally Cardio regular rate and regular rhythm Extremity Extremity Narrative: Left lower extremity is neurovascularly intact. Achilles tendon is intact and normal. Ankle ligaments are intact and normal without signs of laxity There is soft tissue swelling along the lateral malleolus as well as over top of the lateral aspect of the left foot/fifth metatarsal. There is pain with palpation at this site. No obvious bony deformity or joint effusion All compartments are soft and compressible going against compartment syndrome Neuro oriented x3 and CN's II-XII intact bilaterally Sensorium / Orientation: alert Motor Exam: strength 5/5 throughout Psych mental status grossly normal Skin no rashes or lesions noted Skin Narrative: Soft tissue swelling and ecchymosis along the lateral ankle and foot as documented above <Dr. James Peres, DO - Last Filed: 01/13/25 11:40> Physical Exam Const Vital Signs: 01/13/25 05:56 01/13/25 07:24 Temperature 98.9 F 98.7 F Temperature Source Oral Pulse Rate 79 68 Respiratory Rate 18 16 Blood Pressure 140/84 H 126/74 H Blood Pressure Mean 102 91 Pulse Ox 100 98 Oxygen Delivery Method Room Air MDM <Dr. Brian Helms, DO - Last Filed: 01/14/25 03:42> [facility] MDM Narrative Medical decision making narrative: Patient presented to the ER after mechanical fall so there was no need for cardiac or syncope workup. She did not strike her head she is not on anticoagulation and therefore there is no need for head CT as I have low concern for a traumatic subarachnoid or subdural hemorrhage. By physical exam she does not have Achilles tendon rupture and there is no signs of ligamentous injury either. With the soft tissue swelling ecchymosis and pain there is concern for fracture versus dislocation versus contusion. X-rays of the foot and ankle were obtained secondary to this. On my reads of the foot and ankle I did not notice any obvious fracture or dislocation and therefore the patient was discharged. However I was reviewing the official read prior to the end of my shift. The radiologist does note a area of a transverse fracture through the left fifth metatarsal. This does correlate with the location of her pain and her swelling. Therefore the patient was notified that she will need to return. I do not feel that this return visit needs to be a new visit as I am the one who missed the initial fracture. I informed the day physician Dr. Peres of the need of the patient to return for splinting versus boot. He informed me that he will evaluate the patient once again when she returns and put her in a boot secondary to the metatarsal fracture History & Record Review Discussion w/independent historian: Patient and Significant other Radiography Diagnostic Testing: Clinical Impression(s) from Imaging Studies Ankle X-Ray 01/13/25 06:11 IMPRESSION: A transverse FRACTURE at the proximal left 5th metatarsal bone is seen, minimally displaced. Probable comminuted portion extending to the 5th tarsal-metatarsal articulation, as well. On lateral imaging, normal contour of the Achilles tendon is seen mild inferior and posterior calcaneal spurring is noted. No ankle joint effusion is seen. The ankle mortise appears intact. No significant arthritic process is seen. No fracture or dislocation is evident. If clinical concern persists, short-term follow-up imaging may be obtained to rule out a currently occult fracture. Reading Location: [address] Foot X-Ray 01/13/25 06:11 IMPRESSION: A transverse FRACTURE at the proximal left 5th metatarsal bone is seen, minimally displaced. Probable comminuted portion extending to the 5th tarsal-metatarsal articulation, as well. On lateral imaging, normal contour of the Achilles tendon is seen mild inferior and posterior calcaneal spurring is noted. No ankle joint effusion is seen. The ankle mortise appears intact. No significant arthritic process is seen. No fracture or dislocation is evident. If clinical concern persists, short-term follow-up imaging may be obtained to rule out a currently occult fracture. Reading Location: [address] Ankle x-ray as interpreted by the emergency medicine physician reveals mild soft tissue swelling without acute fracture or dislocation Foot x-ray as interpreted by the emergency medicine physician reveals no obvious fracture or dislocation <Dr. James Peres, DO - Last Filed: 01/13/25 11:40> [facility]DM Radiography Diagnostic Testing: Clinical Impression(s) from Imaging Studies Ankle X-Ray 01/13/25 06:11 IMPRESSION: A transverse FRACTURE at the proximal left 5th metatarsal bone is seen, minimally displaced. Probable comminuted portion extending to the 5th tarsal-metatarsal articulation, as well. On lateral imaging, normal contour of the Achilles tendon is seen mild inferior and posterior calcaneal spurring is noted. No ankle joint effusion is seen. The ankle mortise appears intact. No significant arthritic process is seen. No fracture or dislocation is evident. If clinical concern persists, short-term follow-up imaging may be obtained to rule out a currently occult fracture. Reading Location: [address] Foot X-Ray 01/13/25 06:11 IMPRESSION: A transverse FRACTURE at the proximal left 5th metatarsal bone is seen, minimally displaced. Probable comminuted portion extending to the 5th tarsal-metatarsal articulation, as well. On lateral imaging, normal contour of the Achilles tendon is seen mild inferior and posterior calcaneal spurring is noted. No ankle joint effusion is seen. The ankle mortise appears intact. No significant arthritic process is seen. No fracture or dislocation is evident. If clinical concern persists, short-term follow-up imaging may be obtained to rule out a currently occult fracture. Reading Location: [address] Treatment and Re-Evaluation :: Patient was brought back to the emergency room. Radiologist read is for a proximal fifth metatarsal fracture. Case was discussed with on-call podiatry who recommends boot orthosis. She was advised not to bear any weight unless she is in the boot. I will write for pain medication. Discharge Plan Triage Chief Complaint: Lower Extremity Injury ED Provider: Brian Helms Dx/Rx/DC Orders Clinical Impression: Left ankle sprain, Metatarsal fracture, ADHD Instructions: ED Foot Contusion, ED Fracture, Foot, ED Ankle Sprain (Adult) Prescriptions: New oxycodone-acetaminophen [Percocet] 5-325 mg tablet 1 tab PO Q6H PRN (Reason: pain) 3 Days Qty: 12 0RF No Action Kyleena 17.5 mcg/24 hr (5 yrs) 19.5 mg intrauterine device 1 device intrauterine ONCE Patient Comments: [facility] Rx Instructions: as a single dose Stand Alone Forms: ED Work / School Excuse Primary Care Provider: Paula Tracy Referrals: Juan Miguel Rhodes DPM [Med Staff - Active Staff] - As soon as possible Paula Tracy, [employer] [Primary Care Provider] - Activity Restrictions/Additional Instructions: You need to not attempt to put any weight on the foot unless you are in the boot. Please follow-up with the foot surgeon. You will need to call to make an appointment. Print Language: Armenian Disposition Disposition: Home, Self Care Discharge Date/Time: 01/13/25 07:25
[2025-01-13 07:24] VITALS: BP 126/74; PULSE 68; RESP 16; TEMP 37.1; O2SAT 98
== END 2025-01-13 07:25 | disposition home or self-care (01) ==
PROVIDERS: Emergency Provider Emergency Medicine; PCP Nurse Practitioner Family; Visit Provider Emergency Medicine
DX: S93.402A Sprain of unspecified ligament of left ankle, initial encounter (principal); S92.352A Displaced fracture of fifth metatarsal bone, left foot, initial encounter for closed fracture; F90.9 Attention-deficit hyperactivity disorder, unspecified type; W22.8XXA Striking against or struck by other objects, initial encounter
CPT/HCPCS: 73610; 73630; 99282